=== PATIENT | female | born 1970 | race Caucasian/White ===

== ENCOUNTER → 2018-09-27 | Outpatient (CLI) | payer OTHER | LOC: M WUC 13:40 | DX: M54.9 Dorsalgia, unspecified (principal) | CPT/HCPCS: 71046 ==

== ENCOUNTER → 2018-11-08 | Outpatient (REF) | payer OTHER ==
[2018-11-08 17:51] LABS: BASO # 0.1 10^3/uL (0.0-0.2); EOS # 0.1 10^3/uL (0.0-0.50); EOS % 1.3 % (0.0-3.0); HEMATOCRIT 43.6 % (36.0-47.0); HEMOGLOBIN 14.9 g/dl (12.0-15.5); LYMPH # 2.6 10^3/uL (1.5-4.5); LYMPH % 30.8 % (24.0-44.0); MEAN CORPUSCULAR HEMOGLOBIN 29.4 pg (27.0-33.0); MEAN CORPUSCULAR HGB CONC 34.2 g/dl (32.0-36.5); MONO # 0.5 10^3/uL (0.0-0.8); MONO % 5.7 % (0.0-5.0); NEUTROPHILS # 5.1 10^3/uL (1.8-7.7); PLATELET COUNT, AUTOMATED 382 10^3/uL (150-450); RED BLOOD COUNT 5.07 10^6/uL (4.00-5.40); WHITE BLOOD COUNT 8.4 10^3/uL (4.0-10.0)
[2018-11-08 18:05] LABS: HEMOGLOBIN A1c 5.8 %
[2018-11-08 18:18] LABS: ALBUMIN 4.2 GM/DL (3.2-5.2); ALT/SGPT 25 U/L (12-78); BILIRUBIN,TOTAL 0.3 MG/DL (0.2-1.0); BLOOD UREA NITROGEN 10 MG/DL (7-18); CALCIUM LEVEL 9.2 MG/DL (8.5-10.1); CARBON DIOXIDE LEVEL 30 MEQ/L (21-32); CHLORIDE LEVEL 103 MEQ/L (98-107); CHOLESTEROL LEVEL 193 MG/DL (<200); CREATININE FOR GFR 0.68 MG/DL (0.55-1.30); GLOMERULAR FILTRATION RATE > 60.0 (>58); GLUCOSE, FASTING 86 MG/DL (70-100); HDL CHOLESTEROL 50 MG/DL (>40); LDL CHOLESTEROL 116 MG/DL (<100); NON-HDL-C 143 MG/DL; SODIUM LEVEL 139 MEQ/L (136-145); THYROID STIMULATING HORMONE 0.966 uIU/ML (0.358-3.740); TOTAL 25(OH) VITAMIN D 34.2 NG/ML (30.0-100.0); TOTAL PROTEIN 7.9 GM/DL (6.4-8.2); TRIGLYCERIDES LEVEL 134 MG/DL (<150)
== END ==
LOC: M LAB REF 16:33
PROVIDERS: ATTEND Nurse Practitioner Family
DX: Z13.9 Encounter for screening, unspecified (principal)

== ENCOUNTER 2019-08-13 21:47 | Emergency (ER) | payer OTHER ==
[~2019-08-13] VITALS: Ht 172.7 cm; Wt 61.4 kg
[2019-08-13] MEDS ORDERED: TRAZ-163 PO (21:58)
[2019-08-13] MEDS ORDERED: WELLTAB40 PO (21:58)
[2019-08-13] MEDS ORDERED: NAPROXEN 250 MG TAB PO ONE (23:00)
[2019-08-13] MEDS ORDERED: DERMABOND TOPICAL SKIN ADHESIVE TOP ONE (23:00)
[2019-08-13 23:24] VITALS: BP 122/63
--- NOTE | 2019-08-14 10:36 | REP ---
Right small finger series: Four views. History: Laceration. Trauma. Findings: Four views of the right small finger show no evidence of fracture or opaque foreign body. There is soft tissue swelling and irregularity of the distal phalanx consistent with soft tissue laceration. Impression: No fracture or opaque foreign body seen. Electronically Signed by Morris Wade MD 08/14/2019 07:59 A
== END 2019-08-13 23:24 | disposition home or self-care (01) ==
LOC: M ED 21:47
DX: S61.206A Unspecified open wound of right little finger without damage to nail, initial encounter (principal); W23.0XXA Caught, crushed, jammed, or pinched between moving objects, initial encounter; Y92.099 Unspecified place in other non-institutional residence as the place of occurrence of the external cause; Y93.9 Activity, unspecified; Y99.9 Unspecified external cause status; F32.9 Major depressive disorder, single episode, unspecified; Z79.899 Other long term (current) drug therapy

== ENCOUNTER → 2019-09-05 | Outpatient (CLI) | payer OTHER ==
[~2019-09-05] MED LIST: TRAZ-163 PO; WELLTAB40 PO
--- NOTE | 2019-09-05 09:34 | REP ---
Two-view chest: 09/05/2019. Indication: Chest pain. Comparison: 09/27/2019. Findings: The lungs are clear. There is no pleural effusion or pneumothorax. The cardiomediastinal silhouette is unremarkable. Impression: No acute cardiopulmonary process. Electronically Signed by Sonny Alvarado DO 09/05/2019 09:26 A
== END ==
LOC: M ADAMS 08:32
PROVIDERS: ATTEND Nurse Practitioner Family
DX: R07.1 Chest pain on breathing (principal)

== ENCOUNTER → 2020-04-16 | Outpatient (CLI) | payer OTHER ==
[~2020-04-16] MED LIST changes: -TRAZ-163 PO; +TRAZ-257 PO
== END ==
LOC: M LABSMTC 10:02
PROVIDERS: ATTEND Pediatrics
DX: Z03.818 Encounter for observation for suspected exposure to other biological agents ruled out (principal); Z11.59 Encounter for screening for other viral diseases

== ENCOUNTER → 2020-04-30 | Outpatient (REF) | payer OTHER ==
[2020-04-30 11:28] LABS: APPEARANCE, URINE CLEAR (CLEAR); BACTERIA, URINE AUTO NEGATIVE (NEGATIVE); BILIRUBIN, URINE AUTO NEGATIVE (NEGATIVE); BLOOD, URINE BLOOD NEGATIVE (NEGATIVE); COLOR, URINE STRAW (YELLOW); GLUCOSE, URINE (UA) AUTO NEGATIVE (NEGATIVE); KETONE, URINE AUTO NEGATIVE (NEGATIVE); LEUKOCYTE ESTERASE, URINE AUTO NEGATIVE (NEGATIVE); NITRITE, URINE AUTO NEGATIVE (NEGATIVE); PROTEIN, URINE AUTO NEGATIVE (NEGATIVE); RBC, URINE AUTO 0 /HPF (0-3); SPECIFIC GRAVITY URINE AUTO 1.004 (1.002-1.035); SQUAMOUS EPITHELIAL CELL UR AU 0 /HPF (0-6); UROBILINOGEN, URINE AUTO 0.2 mg/dL (0.0-2.0); WBC, URINE AUTO 0 /HPF (0-3)
[2020-04-30 11:40] LABS: HEMOGLOBIN A1c 5.4 %
[2020-04-30 11:47] LABS: ALT/SGPT 25 U/L (12-78); BILIRUBIN,TOTAL 0.4 MG/DL (0.2-1.0); BLOOD UREA NITROGEN 12 MG/DL (7-18); CALCIUM LEVEL 9.4 MG/DL (8.5-10.1); CARBON DIOXIDE LEVEL 34 MEQ/L (21-32); CHLORIDE LEVEL 105 MEQ/L (98-107); CHOLESTEROL LEVEL 147 MG/DL (<200); FREE T4 0.96 NG/DL (0.76-1.46); GLOMERULAR FILTRATION RATE > 60.0 (>51); GLUCOSE, FASTING 87 MG/DL (70-100); HDL CHOLESTEROL 62 MG/DL (>40); LDL CHOLESTEROL 74 MG/DL (<100); NON-HDL-C 85 MG/DL; POTASSIUM SERUM 4.9 MEQ/L (3.5-5.1); SODIUM LEVEL 141 MEQ/L (136-145); THYROID STIMULATING HORMONE 0.571 uIU/ML (0.358-3.740); TOTAL PROTEIN 7.4 GM/DL (6.4-8.2); TRIGLYCERIDES LEVEL 56 MG/DL (<150)
[2020-05-01 18:42] LABS: PTH INTACT 35.1 PG/ML (18.5-88.0); TOTAL 25(OH) VITAMIN D 44.6 NG/ML (30.0-100.0)
[2020-05-01 19:11] LABS: CA19-9 TUMOR MARKER,CARBOHYDRA 7.3 U/ML (<35.0)
== END ==
LOC: M SFHCPLAZ 10:09
PROVIDERS: ATTEND Physician Assistant Medical
DX: R10.9 Unspecified abdominal pain (principal); E55.9 Vitamin D deficiency, unspecified; Z13.220 Encounter for screening for lipoid disorders; R63.4 Abnormal weight loss

== ENCOUNTER → 2020-06-03 | Outpatient (REF) | payer OTHER ==
[2020-06-03 20:07] LABS: BASO % 0.5 % (0.0-1.0); EOS % 0.5 % (0.0-3.0); HEMATOCRIT 40.1 % (36.0-47.0); HEMOGLOBIN 13.3 g/dl (12.0-15.5); LYMPH # 0.8 10^3/uL (1.5-5.0); LYMPH % 20.4 % (24.0-44.0); MEAN CORPUSCULAR HEMOGLOBIN 30.9 pg (27.0-33.0); MEAN CORPUSCULAR HGB CONC 33.2 g/dl (32.0-36.5); MEAN CORPUSCULAR VOLUME 93.3 fl (80.0-96.0); MONO # 0.5 10^3/uL (0.0-0.8); MONO % 13.2 % (0.0-5.0); NEUTROPHILS # 2.6 10^3/uL (1.5-8.5); NEUTROPHILS % 65.1 % (36.0-66.0); PLATELET COUNT, AUTOMATED 253 10^3/uL (150-450); WHITE BLOOD COUNT 3.9 10^3/uL (4.0-10.0)
== END ==
LOC: M SFHCPLAZ 14:19
PROVIDERS: ATTEND Physician Assistant Medical
DX: R10.9 Unspecified abdominal pain (principal)

== ENCOUNTER → 2020-07-30 | Outpatient (CLI) | payer SELFPAY | LOC: M LABSMTC 12:27 | PROVIDERS: ATTEND Pediatrics | DX: Z20.828 Contact with and (suspected) exposure to other viral communicable diseases (principal) ==

== ENCOUNTER → 2020-12-10 | Outpatient (CLI) | payer OTHER, SELFPAY ==
[~2020-12-10] MED LIST changes: +BUPR1TAB56 PO; +TRAZ1TAB14 PO
== END ==
LOC: M LABSMTC 13:22
PROVIDERS: ATTEND Anesthesiology
DX: Z01.812 Encounter for preprocedural laboratory examination (principal); Z20.822 Contact with and (suspected) exposure to COVID-19

== ENCOUNTER 2020-12-15 07:28 | Day surgery (SDC) | payer OTHER ==
[~2020-12-15] VITALS: Ht 172.7 cm; Wt 60.3 kg
[~2020-12-15 07:28] MED LIST changes: +LIDOCAINE 2% 100MG/5ML SDV (FOR ANES.) As Ordered ONE; +NS 1,000 ML IV ONE; +propofoL 200 MG/20 ML VIAL As Ordered ONE
--- OUTSIDE RECORDS SUMMARY | 2020-12-15 07:33 | CCD ---
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 filledwithout mass, wall thickening or stone. No distal ureteral dilatation orstone. Uterus absent and the vaginal cuff intact. No adnexal mass. Smallbowel loops fill the deep pelvis and are fluid-filled but not abnormallydilated. The distal left colon, sigmoid and rectum show less caliber andstool content than the mid-left colon without an abrupt caliber change.There is no mass or adenopathy in the pelvis. No ventral or inguinalhernia nor inguinal adenopathy.IMPRESSION:1. There is no renal, ureteral or bladder stone. An extrarenal pelvis isnoted on the right side but normal caliber collecting system and entiretyof the ureters on both sides. No ureteral stone.2. No bladder calculus or mass.3. Small bowel loops are fluid- filled but not abnormally dilated.4. Some gwnc-rc-ccxgoajm diffuse constipation from cecum to the mid/distalcolon on the left. No colitis, diverticulitis, stricture or mass.5. No inflammatory changes in the mesentery, abdominal or pelvicadenopathy or acute bony finding.6. Solid organs in the upper abdomen were unremarkable. Gallbladdercontracted.Accredited by the [employer] in [place].Gareth Emerson, ISAIAH/Chelsi you for referring BISI SCHMITT to our office. Electronically Signed - GARTEH EMERSON MD 05/25/20 17:35 Name Value Range Interpretation Code Description Data Bertha rce(s) Supporting Document(s) ID Date Data Source [id number] 04/16/2020 10:00:00 AM EDT [facility] Name Value Range Interpretation Code Description Data Bertha rce(s) Supporting Document(s) SARS CORONAVIRUS 2 RNA [facility] This lab was ordered by [facility] and reported by [facility]. Procedure Social History Code Duration Value Status Description Data Source(s ) Smoking 09/16/2020 12:00:00 AM EST Never Smoker completed Never S moker eCW1 ([facility]) Smoking 09/16/2020 12:00:00 AM EST Never Smoker completed Never S moker eCW1 ([facility]) Smoking 09/09/2020 12:00:00 AM EDT Never Smoker completed Never S moker eCW1 ([facility]) Smoking 09/09/2020 12:00:00 AM EDT Never Smoker completed Never S moker eCW1 ([facility]) Smoking 09/09/2020 12:00:00 AM EDT Never Smoker completed Never S moker eCW1 ([facility]) Smoking 06/05/2020 12:00:00 AM EDT Patient has never smoked co mpleted Patient has never smoked MEDENT ([facility], [facility]) Smoking 06/03/2020 12:00:00 AM EDT Never Smoker completed Never S moker eCW1 ([facility]) Smoking 04/30/2020 12:00:00 AM EDT Never Smoker completed Never S moker eCW1 ([facility]) Vital Signs ID Date Data Source UNK Name Value Range Interpretation Code Description Data Source(s) Body surface area Derived from formula 1.72 m2 1.72 m2 MEDENT ([facility]) Body weight 60.329 kg 60.329 kg MEDENT ([facility]) [place] body weight 140 [lb_av] 140 [lb_av] MEDEN T ([facility]) Body mass index (BMI) [Ratio] 20.2 kg/m2 20.2 k g/m2 [facility] ([facility]) Body weight 133.00 [lb_av] 133.00 [lb_av] MEDEN T ([facility]) Body height 68 [in_i] 68 [in_i] MEDENT ([facility]) 5'8" Diastolic blood pressure 80 mm[Hg] 80 mm[Hg] MEDENT ([facility]) Systolic blood pressure 140 mm[Hg] 140 mm[Hg] M EDENT ([facility]) Body weight 132.8 [lb_av] 132.8 [lb_av] eCW1 ([facility]) Diastolic blood pressure 62 mm[Hg] 62 mm[Hg] eCW1 ([facility]) Systolic blood pressure 118 mm[Hg] 118 mm[Hg] e CW1 ([facility]) Body temperature 97.9 [degF] 97.9 [degF] eCW1 ( [facility]) Respiratory rate 20 /min 20 /min eCW1 ([facility]) Heart rate 83 /min 83 /min eCW1 ([facility]) Body mass index (BMI) [Ratio] 20.49 kg/m2 20.49 kg/m2 eCW1 ([facility]) Body height 67.5 [in_i] 67.5 [in_i] eCW1 ([facility]) Body mass index (BMI) [Ratio] 19.0 kg/m2 19.0 k g/m2 MEDENT ([facility]) Body height 68 [in_i] 68 [in_i] MEDENT ([facility]) 5'8" Body weight 125.00 [lb_av] 125.00 [lb_av] MEDEN T ([facility], [facility]) Body temperature 98.5 [degF] 98.5 [degF] MEDENT ([facility], [facility]) Oxygen saturation in Arterial blood by Pulse oximetry 97 % 97 % MEDENT ([facility], [facility]) Respiratory rate 17 /min 17 /min MEDENT ( [facility], [facility]) Heart rate 101 /min 101 /min MEDENT ([facility], [facility]) Diastolic blood pressure 69 mm[Hg] 69 mm[Hg] MEDENT ([facility], [facility]) Systolic blood pressure 112 mm[Hg] 112 mm[Hg] M EDENT ([facility], [facility]) Diastolic blood pressure 78 mm[Hg] 78 mm[Hg] eCW1 ([facility]) Systolic blood pressure 122 mm[Hg] 122 mm[Hg] e CW1 ([facility]) Body temperature 99.5 [degF] 99.5 [degF] eCW1 ( [facility]) Respiratory rate 17 /min 17 /min eCW1 ([facility]) Heart rate 92 /min 92 /min eCW1 ([facility]) Body mass index (BMI) [Ratio] 20.37 kg/m2 20.37 kg/m2 W1 ([facility]) Body height 67.5 [in_i] 67.5 [in_i] eCW1 ([facility]) Body weight 132.0 [lb_av] 132.0 [lb_av] eCW1 ([facility]) Diastolic blood pressure 67 mm[Hg] 67 mm[Hg] eCW1 ([facility]) Systolic blood pressure 118 mm[Hg] 118 mm[Hg] e CW1 ([facility]) Body mass index (BMI) [Ratio] 20.06 kg/m2 20.06 kg/m2 eCW1 ([facility]) Body height 67.5 [in_i] 67.5 [in_i] eCW1 ([facility]) Body weight 130 [lb_av] 130 [lb_av] eCW1 ([facility]) Diastolic blood pressure 60 mm[Hg] 60 mm[Hg] eCW1 ([facility]) Systolic blood pressure 106 mm[Hg] 106 mm[Hg] e CW1 ([facility]) Body temperature 98.1 [degF] 98.1 [degF] eCW1 ( [facility]) Respiratory rate 17 /min 17 /min eCW1 ([facility]) Heart rate 128.4 /min 128.4 /min eCW1 ([facility]) Body mass index (BMI) [Ratio] 19.81 kg/m2 19.81 kg/m2 eCW1 ([facility]) Body height 67.5 [in_i] 67.5 [in_i] eCW1 ([facility]) Body weight 128.4 [lb_av] 128.4 [lb_av] eCW1 ([facility]) Diastolic blood pressure 84 mm[Hg] 84 mm[Hg] eCW1 ([facility]) Systolic blood pressure 124 mm[Hg] 124 mm[Hg] e CW1 ([facility]) Body mass index (BMI) [Ratio] 20.06 kg/m2 20.06 kg/m2 eCW1 ([facility]) Body height 67.5 [in_us] 67.5 [in_us] eCW1 ([facility]) Body weight Measured 130 [lb_av] 130 [lb_av] eC W1 ([facility]) Systolic blood pressure 102 mm[Hg] 102 mm[Hg] M EDENT ([facility]) Body mass index (BMI) [Ratio] 22.3 kg/m2 22.3 k g/m2 MEDENT ([facility], [facility]) Body height 68 [in_i] 68 [in_i] MEDENT ([facility], [facility]) 5'8" Body weight 147.00 [lb_av] 147.00 [lb_av] MEDEN T ([facility], [facility]) Body temperature 98.6 [degF] 98.6 [degF] MEDENT ([facility], [facility]) Oxygen saturation in Arterial blood by Pulse oximetry 99 % 99 % MEDENT ([facility], [facility]) Respiratory rate 16 /min 16 /min MEDENT ( [facility], [facility]) Heart rate 64 /min 64 /min MEDENT ([facility], [facility]) Diastolic blood pressure 66 mm[Hg] 66 mm[Hg] [facility], [facility]) Body temperature 96.8 [degF] 96.8 [degF] [facility] ([facility], )
--- OUTSIDE RECORDS SUMMARY | 2020-12-15 07:33 | CCD ---
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 Role Phone SirenaJuan jang Unavailable PROBLEMS Type Condition ICD9-CM Code LUF24-AL Code Onset Dates Condition S tatus SNOMED Code Notes Problem Melanocytic nevi of left lower limb, including hip D22.72 Active [id number] Problem Melanocytic nevi of right lower limb, including hip D22.71 Active 322342042 Problem Melanocytic nevi of left upper limb, including shoulder D22.62 Active 878281405299073 Problem Unintentional weight loss of 10% body weight within 6 dinora hs R63.4 Active 035260081 Problem Other chronic pain G89.29 Active 70958405 Problem Vitamin D insufficiency E55.9 Active 13920693 Problem Melanocytic nevi of right upper limb, including shoulder D22.61 Active 470971828 Problem Melanocytic nevi of trunk D22.5 Active 013496 002 Problem Melanocytic nevi of scalp and neck D22.4 Activ e 629530065 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 675952319 ALLERGIES No Known Allergies ENCOUNTERS from 1969 to 2020-10-12 Encounter Location Date Provider Diagnosis [facility] Dermatology [address] [place] [address] May, Juan Dukes Melanocytic nevi of trunk D2 2.5 ; Screening, malignant neoplasm, skin Z12.83 ; Melanocytic nevi of right lower limb, including hip D22.71 ; Melanocytic nevi of right upper limb, including shoulder D22.61 ; Melanocytic nevi of left lower limb, including hip D22.72 ; Melanocytic nevi of left upper limb, including shoulder D22.62 ; Melanocytic nevi of scalp and neck D22.4 ; 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 No LMP: Hysterectomy Have you ever had an STD? No Drug and Alcohol Question Answer Notes Total Score: 0 Interpretation: No problems reported Alcohol Screening: Question Answer Notes Did you have a drink containing alcohol in the past year? Ye s Points 2 Interpretation Negative How often did you have six or more drinks on one occas ion in the past year? Never (0 points) How many drinks did you have on a typica l day when you were drinking in the past year? 1 or 2 (0 points) How often did you have a drink containing alcohol in t he past year? Two to four times a month (2 points) Tobacco Use: Question Answer Notes Are you a: never smoker never smoker REASON FOR REFERRAL No Information VITAL SIGNS Weight 130 lbs May, Height 67.5 in May, BMI 20.06 kg/m2 May, Blood pressure systolic 118 mm Hg May, Blood pressure diastolic 67 mm Hg May, MEDICATIONS Medication SIG (Take, Route, Frequency, Duration) Notes Start Da te End Date Status TraZODone HCl 150 MG 1 tablet at bedtime Orally Once a day Active Vitamin D (Cholecalciferol) 10 MCG (400 UNIT) 1 tablet Orally Once a day for 30 day(s) Active Wellbutrin SR 200 MG 1 tab Orally twice daily Active PROCEDURES No Information RESULTS No Results REASON FOR VISIT est care, fbse MEDICAL (GENERAL) HISTORY Type Description Date Medical History depression Medical History Early surgical menopause Surgical History tubal ligation Surgical History Laparoscopic Assisted vaginal hysterecto Liborio otero 09/2009 Surgical History laser eye surgery Surgical History Left knee meniscal repair Hospitalization History Hysterectomy Hospitalization History childbirth x's 1 Goals Section No Information Health Concerns No Information MEDICAL EQUIPMENT No Information MENTAL STATUS No Information FUNCTIONAL STATUS No Information ASSESSMENTS Encounter Date Diagnosis Assessment Notes Treatment Notes Treatm ent Clinical Notes May, Melanocytic nevi of trunk (ICD-10 - D22.5) Benign, reassurance, ABCDE, photoprotection, Q 1 Y MD derm skin check, Q 1 M self skin check May, Screening, malignant neoplasm, skin (ICD-10 - Z1 2.83) Patient counseled on signs and symptoms of skin cancer including ABCDE's of Melanoma. Patient counseled to wear sunscreen or use sun protective clothing when outdoors. Avoid peak hours of sun between 10-2. Patient instructed to call with any new or changing lesions. May, Melanocytic nevi of right lo wer limb, including hip (ICD-10 - D22.71) Benign, reassurance, ABCDE, photoprotection, Q 1 Y MD derm skin check, Q 1 M self skin check May, Melanocytic nevi of right up per limb, including shoulder (ICD-10 - D22.61) Benign, reassurance, ABCDE, photoprotection, Q 1 Y MD derm skin check, Q 1 M self skin check May, Melanocytic nevi of left low er limb, including hip (ICD-10 - D22.72) Benign, reassurance, ABCDE, photoprotection, Q 1 Y MD derm skin check, Q 1 M self skin check May, Melanocytic nevi of left upp er limb, including shoulder (ICD-10 - D22.62) Benign, reassurance, ABCDE, photoprotection, Q 1 Y MD derm skin check, Q 1 M self skin check May, Melanocytic nevi of scalp and neck (ICD-10 - D22 .4) Benign, reassurance, ABCDE, photoprotection, Q 1 Y MD derm skin check, Q 1 M self skin check May, Notalgia paresthetica (ICD-10 - R20.2) Sarna in refrigerater ad ramiro to itchy areas May, SK (seborrheic keratosis) (ICD-10 - L82.1) Benign, reassurance PLAN OF TREATMENT Treatment Notes Assessment Notes Clinical Notes Melanocytic nevi of trunk Benign, reassurance, ABCDE, photoprotection, Q 1 Y MD derm skin check, Q 1 M self skin check Screening, malignant neoplasm, skin Patient counseled on signs and symptoms of skin cancer including ABCDE's of Melanoma. Patient counseled to wear sunscreen or use sun protective clothing when outdoors. Avoid peak hours of sun between 10 -2. Patient instructed to call with any new or changing lesions. Melanocytic nevi of right lower limb, including hip Be nign, reassurance, ABCDE, photoprotection, Q 1 Y MD derm skin check, Q 1 M self skin check Melanocytic nevi of right upper limb, including should er Benign, reassurance, ABCDE, photoprotection, Q 1 Y MD derm skin check, Q 1 M self skin check Melanocytic nevi of left lower limb, including hip Toño ign, reassurance, ABCDE, photoprotection, Q 1 Y MD derm skin check, Q 1 M self skin check Melanocytic nevi of left upper limb, including shoulde r Benign, reassurance, ABCDE, photoprotection, Q 1 Y MD derm skin check, Q 1 M self skin check Melanocytic nevi of scalp and neck Benign, reassurance , ABCDE, photoprotection, Q 1 Y MD derm skin check, Q 1 M self skin check Notalgia paresthetica Sarna in refrigera ter ad ramiro to itchy areas SK (seborrheic keratosis) Benign, reassu mervat Next Appt Details 1 Year Reason:FBSE Provider Name:Aylin Duenas, 03-11 10:45:00 AM, [address] [place], [address], Provider Name:Seda Vargas, 10:00:00 AM, [address] [facility] [facility], [place], [address], Follow Up:1 YearFBSE Insurance Providers Payer Name Payer Address Payer Phone Insured Name Patient Relati onship to Insured Coverage Start Date Coverage End Date [facility] [employer] [facility] [address] [facility] [phone] BISI ARTEAGA self
--- OUTSIDE RECORDS SUMMARY | 2020-12-15 07:33 | CCD | Continuity of Care Document ---
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 Name Role Phone SumibrianAylin AUTM Problems Description No Information Available Social History Type Date Description Comments Sex Unknown ETOH Use Rarely consumes alcohol Tobacco Use Start: Unknown Patient has never smoked Allergies, Adverse Reactions, Alerts Description No Known Drug Allergies Medications Active Medications SIG Qnty Indications Ordering Provide r Date Magnesium Citrate 1.745GM/30ML Kellie ution one 10 oz bottle green or clear only, use for additional prep at 2-3 days before procedure 296ml K59.00 Oni Winkler MD 10/19/2020 Miralax 17GM/Scoop Powder use as directed see dr winkler colon preparation instructions 510gm K59.00 Ramirez Winkler MD 10/19/2020 Wellbutrin XL 300mg Tablets ER 24H R take one tablet by mouth every morning Unknown Trazodone HCL 100mg Tablets Unknown Fibercon 625mg Tablets 2 by mouth twice a day Unknown Vitamin D 1000Unit Tablets 1 by mouth every day Unknown Immunizations Description No Information Available Vital Signs Date Vital Result Comment 10/19/2020 10:15am BP Systolic 140 mmHg BP Diastolic 80 mmHg Height 68 inches 5'8" Weight 133.00 lb BMI (Body Mass Index) 20.2 kg/m2 Juliaetta Body Weight 140 lb Weight 60.329 kg BSA (Body Surface Area) 1.72 m2 11/21/2019 10:36am Body Temperature 96.8 F Results Description No Information Available Procedures Description No Information Available Medical Devices Description No Information Available Encounters Type Date Location Provider Dx Diagnosis Office Visit 10/19/2020 10:15a [facility] Oni contreras MD K59.00 Constipation, unspecified R19.4 Change in bowel habit R63.4 Abnormal weight loss Assessments Date Code Description Provider 10/19/2020 K59.00 Constipation, unspecified Oni Winkler MD 10/19/2020 R19.4 Change in bowel habit Oni contreras MD 10/19/2020 R63.4 Abnormal weight loss Oni maldonado MD Plan of Treatment 10/19/2020 - Oni Winkler MD* K59.00 Constipation, unspecified * R19.4 Change in bowel habit * R63.4 Abnormal weight loss * * New Medication:* Magnesium Citrate 1.745 GM/30ML * Miralax 17 GM/Scoop * New Orders:* Colonoscopy, Ordered: 10/19/20 * Recommendations:* stop Fiber, start Miralax 17 gm daily. this will not work overnight...will take 4-5 days before results, but then with continued use, will typically procduce 1 BM/day in mild to moderate constipation. May need to adjust later to twice a day, buit would start with that. Colonoscopy rec for change in BH and for weight loss. Functional Status Description No Information Available Mental Status Description No Information Available Referrals Refer to Reason for Referral Status Appt Date Stan Blanton M.D. taylor, needs screening col onosocpy constipation noted on CT 04/2020 Scheduled 10/07/[address] [place] [address], [address] [place] [address] [phone]
--- OUTSIDE RECORDS SUMMARY | 2020-12-15 07:33 | CCD ---
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 671102631 Problem Vitamin D insufficiency E55.9 Active 40787585 Problem Breast cancer screening by mammogram Z12.31 Act kera 332819787 Problem Cervical cancer screening Z12.4 Active 336460 001 Problem Lipid screening Z13.220 Active 717442827 Problem Colon cancer screening Z12.11 Active 520307725 Problem Breast cancer screening Z12.39 Active 99532231 1 Problem Unintentional weight loss of 10% body weight within 6 dinora hs R63.4 Active 540688097 ALLERGIES No Known Allergies ENCOUNTERS from 1970 to 2020-10-06 Encounter Location Date Provider Diagnosis [address] [address] Sep, Aylin Sumibrian Left flank pain R10.9 ; Unintentional we ight loss of 10% body weight within 6 months R63.4 ; Vitamin D insufficiency E55.9 ; Breast cancer screening Z12.39 ; Colon cancer screening Z12.11 ; Lipid screening Z13.220 and Cervical cancer screening Z12.4 IMMUNIZATIONS No Information SOCIAL HISTORY Tobacco Use: Social History Observation Description Date Details (start date - stop date) Never Smoker Sex Assigned At : Social History Observation Description Sex Assigned At Unknown Audit Question Answer Notes Total Score: 2 Interpretation: Alcohol Education Language: Question Answer Notes Languages spoken: Bulgarian Rastafarian: Question Answer Notes Rastafarian 32 None Sexual Hx: Question Answer Notes [...] FOR REFERRAL No Information VITAL SIGNS Weight 132.8 lbs Sep, Height 67.5 in Sep, BMI 20.49 kg/m2 Sep, Heart Rate 83 /min Sep, Respiratory Rate 20 /min Sep, Temperature 97.9 degrees Fahrenheit Sep, Oximetry 97% Sep, Blood pressure systolic 118 mm Hg Sep, Blood pressure diastolic 62 mm Hg Sep, MEDICATIONS Medication SIG (Take, Route, Frequency, Duration) Notes Start Da te End Date Status TraZODone HCl 150 MG 1 tablet at bedtime Orally Once a day Active Vitamin D (Cholecalciferol) 10 MCG (400 UNIT) 1 tablet Orally Once a day for 30 day(s) Active Wellbutrin SR 200 MG 1 tab Orally twice daily Active PROCEDURES No Information RESULTS No Results REASON FOR VISIT Colon Cancer screening MEDICAL (GENERAL) HISTORY Type Description Date Medical [...] Notes Treatment Notes Treatm ent Clinical Notes Sep, Left flank pain (ICD-10 - R10.9) possibly 2 constipation 05/2020 CT of A&P @ No. Rad. c extrarenal pelvis on Rt. no stone no stone; mild- moderate diffuse constip. in cecum to mid colon 04/2020 CA 19-9 7.3 nl 04/2020 na 141, k4.9, BUN/CR 12/0.70, GLUC 87, CALC9.4, AST 12, ALT 25 04 Sep, 2020 Unintentional weight loss of 10% body weight within 6 months (ICD- 10 - R63.4) She has remained stable since 06/01 132lbs., Consulted to GI for screening colonoscopy will change to Dr. Bowman if can't get in Sep, Vitamin D insufficiency (ICD-10 - E55.9) 04/2020 VIT. d 44.6, pTHI 44.6, CALC9.4 Sep, Breast cancer screening (ICD-10 - Z12.39) Does monthly SBE's 2019 Mammo. @[facility] 2017 Mammo. cat. 1 neg. @ [facility] 02/2014 Mammo. Cat. 1 Neg. Sep, Colon cancer screening (ICD-10 - Z12.11) no family h/o colon cancer or polyps 10/07 f/u c Dr. Gibson Sep, Lipid screening (ICD-10 - Z13.220) 04/2020 ldl 74/hdl62/TG 56; TSH 0.571, FT4 0.96 Sep, Cervical cancer screening (ICD-10 - Z12.4) 2010 S/p hysterectomy Sep, Other 09/2019 neg. CX RAY for CP PLAN OF TREATMENT Treatment Notes Assessment Notes Clinical Notes Left flank pain possibly 2 constipat ion05/2020 CT of A&P @ No. Rad. c extrarenal pelvis on Rt. no stone no stone; mild-moderate diffuse constip. in cecum to mid colon04/2020 CA 19-9 7.3 nl04/2020 na 141, k4.9, BUN/CR 12/0.70, GLUC 87, CALC9.4, AST 12, ALT 25 Unintentional weight loss of 10% body weight within 6 months She has remained stable since 06/01 132lbs.,Consulted to GI for screening colonoscopy will change to Dr. Bowman if can't get in Vitamin D insufficiency 04/2020 VIT. d 44 .6, pTHI 44.6, CALC9.4 Breast cancer screening Does monthly SBE Mammo. @[id number] Mammo. cat. 1 neg. @ [facility]/2014 Mammo. Cat. 1 Neg. Colon cancer screening no family h/o col on cancer or polyps 10/07 f/u c Dr. Gibson Lipid screening 04/2020 ldl 74/hdl62/ TG 56; TSH 0.571, FT4 0.96 Cervical cancer screening 2010 S/p hyste rectomy Next Appt Details 5-6M f/u c SS Reason: Provider Name:Aylin Duenas, 03-11 10:45:00 AM, [address] [place], [address], Provider Name:Seda Vargas, 10:00:00 AM, [address] [place], [address] [place] [address], [place], [address], Insurance Providers Payer Name Payer Address Payer Phone Insured Name Patient Relati onship to Insured Coverage Start Date Coverage End Date [facility] [employer] [facility] [address] [facility] [id number] BISI ARTEAGA
--- NOTE | 2020-12-15 09:02 | ROOR ---
Patient Name: Nakita King Procedure Date: 12/15/2020 8:35 AM Date of : 1970 Age: 50 Room: [facility] Gender: Female Note Status: Finalized Procedure: Colonoscopy Indications: Change in bowel habits Providers: Oni GIBSON MD Referring MD: Aylin AZUL Requesting Provider: Medicines: Monitored Anesthesia Care Complications: No immediate complications. Procedure: Pre-Anesthesia Assessment: - The heart rate, respiratory rate, oxygen saturations, blood pressure, adequacy of pulmonary ventilation, and response to care were monitored throughout the procedure. The Colonoscope was introduced through the anus and advanced to 5 cm into the ileum. The colonoscopy was performed without difficulty. The patient tolerated the procedure well. The quality of the bowel preparation was good. Findings: The perianal and digital rectal examinations were normal. The colon (entire examined portion) was moderately redundant. A diminutive polyp was found in the splenic flexure. The polyp was sessile. The polyp was removed with a cold snare. Resection and retrieval were complete. A few small-mouthed diverticula were found in the sigmoid colon. Small Internal Hemorrhoids. The exam was otherwise without abnormality on direct and retroflexion views. Impression: - Somewhat elongated and redundant colon. - One diminutive polyp at the splenic flexure, removed with a cold snare. Resected and retrieved. - Minimal diverticulosis in the sigmoid colon. - Small Internal Hemorrhoids. - The colon and terminal ileum examinations are otherwise normal on direct and retroflexion views. Recommendation: - Miralax 1 capful (17 grams) in 8 ounces of water daily. (or Miralax 1 capful (17 grams) in 8 ounces of water twice a day). - Repeat colonoscopy in 5 years for surveillance. Procedure Code(s): --- Professional --- 86398, Colonoscopy, flexible; with removal of tumor(s), polyp(s), or other lesion(s) by snare technique Diagnosis Code(s): --- Professional --- K57.30, Diverticulosis of large intestine without perforation or abscess without bleeding R19.4, Change in bowel habit K63.5, Polyp of colon Q43.8, Other specified congenital malformations of intestine CPT copyright 2019 [employer]. All rights reserved. The codes documented in this report are preliminary and upon dry can tender review may be revised to meet current compliance requirements. Oni Gibson MD Oni GIBSON MD 12/15/2020 9:02:29 AM Electronically signed by Oni GIBSON MD Number of Addenda: 0 Note Initiated On: 12/15/2020 8:35 AM Estimated Blood Loss: Estimated blood loss: none.
[2020-12-15 09:29] VITALS: BP 111/67
== END 2020-12-15 09:32 | disposition home or self-care (01) ==
LOC: M OPP 07:28
PROVIDERS: ATTEND Internal Medicine Gastroenterology
DX: R19.4 Change in bowel habit (principal); R63.4 Abnormal weight loss; K63.5 Polyp of colon; K64.8 Other hemorrhoids; Q43.8 Other specified congenital malformations of intestine; F32.9 Major depressive disorder, single episode, unspecified; Z79.899 Other long term (current) drug therapy; Z80.3 Family history of malignant neoplasm of breast

== ENCOUNTER → 2021-06-22 | Outpatient (CLI) | payer OTHER ==
[~2021-06-22] MED LIST changes: -LIDOCAINE 2% 100MG/5ML SDV (FOR ANES.) As Ordered ONE; -NS 1,000 ML IV ONE; -propofoL 200 MG/20 ML VIAL As Ordered ONE
--- NOTE | 2021-06-22 12:35 | REP ---
INDICATION: CHEST PAIN, COUGH. COMPARISON: 09/05/2019 TECHNIQUE: PA and lateral FINDINGS: The superior mediastinal structures are midline. The cardiac silhouette is unremarkable in size, shape, and position. The diaphragmatic surfaces of the lungs are regular, and the costophrenic angles are clear. The pulmonary andersen are clear. The imaged osseous structures are intact. IMPRESSION: There is no acute cardiopulmonary disease. <Electronically signed by Rodolfo Jaeger > 06/22/21 0014
== END ==
LOC: M WUC 12:15
PROVIDERS: ATTEND Physician Assistant
DX: R05 Cough (principal); R07.9 Chest pain, unspecified

== ENCOUNTER → 2021-06-24 | Outpatient (CLI) | payer OTHER ==
[2021-06-24 13:32] LABS: CK-MB VALUE MASS < 1.0 NG/ML (<3.6); CPK CREATINE PHOSPHOKINASE 58 U/L (26-192); MB/CK RELATIVE INDEX 1.72 (< OR =4); TROPONIN I < 0.02 NG/ML (< 0.10)
[2021-06-24 13:40] LABS: BASO # 0.1 10^3/uL (0.0-0.2); BASO % 0.9 % (0.0-1.0); EOS # 0.1 10^3/uL (0.0-0.5); EOS % 1.3 % (0.0-3.0); HEMATOCRIT 40.8 % (36.0-47.0); HEMOGLOBIN 13.4 g/dl (12.0-15.5); LYMPH # 1.5 10^3/uL (1.5-5.0); LYMPH % 27.8 % (24.0-44.0); MEAN CORPUSCULAR HEMOGLOBIN 30.3 pg (27.0-33.0); MEAN CORPUSCULAR HGB CONC 32.8 g/dl (32.0-36.5); MEAN CORPUSCULAR VOLUME 92.3 fl (80.0-96.0); MONO # 0.4 10^3/uL (0.0-0.8); MONO % 7.9 % (2.0-8.0); NEUTROPHILS # 3.3 10^3/uL (1.5-8.5); NEUTROPHILS % 61.9 % (36.0-66.0); PLATELET COUNT, AUTOMATED 298 10^3/uL (150-450); RED BLOOD COUNT 4.42 10^6/uL (4.00-5.40); WHITE BLOOD COUNT 5.3 10^3/uL (4.0-10.0)
[2021-06-24 14:23] LABS: ERYTHROCYTE SEDIMENTATION RATE 7 mm/hr (0-30)
== END ==
LOC: M PLALAB 10:19
PROVIDERS: ATTEND Physician Assistant Medical
DX: R05 Cough (principal); R07.89 Other chest pain

== ENCOUNTER → 2021-07-29 | Outpatient (CLI) | payer OTHER ==
--- NOTE | 2021-07-29 11:45 | REP ---
INDICATION: COUGH, CHEST PAIN COMPARISON: None. TECHNIQUE: Standard helical technique without intravenous contrast administration FINDINGS: There is no mediastinal or hilar adenopathy. There are no pleural or pericardial effusions. The imaged upper abdomen is within normal limits. The imaged osseous structures are within normal limits. Evaluation of the lung andersen shows mild biapical pleuroparenchymal scarring. There are bilateral lower lobe curvilinear densities. There is mild cylindrical bronchiectasis. In the left lower lobe there is a 5 mm size nodule. IMPRESSION: 1. 5 mm sized left lower lobe nodule. According to the revised Fleischner society criteria this represents lung rads category 2 lesion for which a 1 year follow-up is recommended. 2. Mild chronic lung field changes as described above. A portion of the curvilinear basilar densities noted were seen on the lung base images obtained during abdominal CT of 05/25/2020 and those imaged portions appear stable. <Electronically signed by Rodolfo Jaeger > 07/29/21 [id number]
== END ==
LOC: M RAD 11:01
PROVIDERS: ATTEND Physician Assistant Medical
DX: R05 Cough (principal); R07.89 Other chest pain; R91.1 Solitary pulmonary nodule; J47.9 Bronchiectasis, uncomplicated

== ENCOUNTER → 2021-09-28 | Outpatient (CLI) | payer OTHER ==
[~2021-09-28] MED LIST changes: +METHACHOLINE KIT (J7674) INH ONE
--- NOTE | 2021-09-28 14:29 | PFTRPT ---
Site: [facility], [address] [place], [address] ID: [id number] Name: BISI ARTEAGA Visit Date: 09/28/2021 Second ID: [id number] Referring Doctor: PETAR Gomez, Madhuri Scott Reviewing Doctor: Yayo Wu MD Sign Builder Supervisor: Tristan SALINAS RRT Age: 51 : 1970 Sex: Female Race: Height: 68.00 Inches Weight: 130.00 Lbs BSA: 1.70 Order IDs: [id number] Requested Test(s): <RESP-PFT.METH CHAL> Diagnosis: R06.00 of albuterol for post bronchodilator. Review Status: Not Reviewed Pre-Bronch Post-Bronch Pred Actual %Pred Actual %Chng SPIROMETRY FVC (L) 3.99 4.22 105 4.21 FEV1 (L) 3.13 3.23 103 3.11 -3 FEV1/FVC (%) 80 76 95 74 -3 FEF 25% (L/sec) 5.57 6.04 108 6.38 5 FEF 50% (L/sec) 3.84 3.87 100 2.98 -22 FEF 75% (L/sec) 1.38 1.06 76 0.94 -11 FEF 25-75% (L/sec) 2.89 2.69 93 2.32 -13 FEF Max (L/sec) 7.27 6.69 92 7.03 5 FIVC (L) 3.60 3.13 -13 FIF 50% (L/sec) 3.54 3.93 110 3.65 -7 FIF Max (L/sec) 4.00 4.57 14 Expiratory Time (sec) 6.37 6.81 6 Back Extrap Vol (L) 0.09 0.09 -2 Time To FEFmax (sec) 0.084 0.069 -18
== END ==
LOC: M CARPUL 13:25
PROVIDERS: ATTEND Physician Assistant
DX: R06.00 Dyspnea, unspecified (principal)
CPT/HCPCS: 94070; 95070; J7674

== ENCOUNTER 2022-04-01 15:05 | Emergency (ER) | payer OTHER ==
[~2022-04-01] VITALS: Ht 172.7 cm; Wt 61.4 kg
[~2022-04-01 15:05] MED LIST changes: -METHACHOLINE KIT (J7674) INH ONE
[2022-04-01 16:18] LABS: BASO % 0.8 % (0.0-1.0); EOS % 0.6 % (0.0-3.0); HEMATOCRIT 37.3 % (36.0-47.0); HEMOGLOBIN 12.8 g/dl (12.0-15.5); LYMPH # 1.5 10^3/uL (1.5-5.0); LYMPH % 30.4 % (24.0-44.0); MEAN CORPUSCULAR HEMOGLOBIN 31.2 pg (27.0-33.0); MEAN CORPUSCULAR HGB CONC 34.3 g/dl (32.0-36.5); MONO # 0.4 10^3/uL (0.0-0.8); MONO % 7.5 % (2.0-8.0); NEUTROPHILS # 3.1 10^3/uL (1.5-8.5); NEUTROPHILS % 60.5 % (36.0-66.0); PLATELET COUNT, AUTOMATED 302 10^3/uL (150-450); WHITE BLOOD COUNT 5.1 10^3/uL (4.0-10.0)
[2022-04-01 16:49] LABS: ALBUMIN 3.9 GM/DL (3.2-5.2); ALT/SGPT 25 U/L (12-78); BILIRUBIN,DIRECT 0.1 MG/DL (0.0-0.2); BILIRUBIN,TOTAL 0.5 MG/DL (0.2-1.0); BLOOD UREA NITROGEN 11 MG/DL (7-18); CALCIUM LEVEL 9.1 MG/DL (8.5-10.1); CARBON DIOXIDE LEVEL 30 MEQ/L (21-32); CHLORIDE LEVEL 106 MEQ/L (98-107); CK-MB VALUE MASS 1.2 NG/ML (<3.6); CPK CREATINE PHOSPHOKINASE 72 U/L (26-192); CREATININE FOR GFR 0.78 MG/DL (0.55-1.30); GLOMERULAR FILTRATION RATE > 60.0 (>51); GLUCOSE, FASTING 88 MG/DL (70-100); LIPASE 152 U/L (73-393); MB/CK RELATIVE INDEX 1.67 (< OR =4); POTASSIUM SERUM 3.7 MEQ/L (3.5-5.1); SODIUM LEVEL 141 MEQ/L (136-145); TOTAL PROTEIN 6.7 GM/DL (6.4-8.2)
[2022-04-01 17:15] VITALS: BP 117/67
== END 2022-04-01 18:00 | disposition home or self-care (01) ==
LOC: M ED 15:05
DX: R07.9 Chest pain, unspecified (principal); J45.909 Unspecified asthma, uncomplicated; F32.9 Major depressive disorder, single episode, unspecified; F41.9 Anxiety disorder, unspecified; Z79.899 Other long term (current) drug therapy

== ENCOUNTER → 2022-05-02 | Outpatient (REF) | payer OTHER | LOC: M SFHCPLAZ 12:54 | PROVIDERS: ATTEND Physician Assistant Medical | DX: K21.9 Gastro-esophageal reflux disease without esophagitis (principal) ==

== ENCOUNTER → 2022-05-04 | Outpatient (CLI) | payer OTHER ==
[2022-05-04 13:21] LABS: BASO # 0.1 10^3/uL (0.0-0.2); EOS % 0.8 % (0.0-3.0); HEMATOCRIT 44.7 % (36.0-47.0); HEMOGLOBIN 14.6 g/dl (12.0-15.5); LYMPH # 1.7 10^3/uL (1.5-5.0); LYMPH % 34.1 % (24.0-44.0); MEAN CORPUSCULAR HEMOGLOBIN 30.1 pg (27.0-33.0); MEAN CORPUSCULAR HGB CONC 32.7 g/dl (32.0-36.5); MEAN CORPUSCULAR VOLUME 92.2 fl (80.0-96.0); MONO # 0.4 10^3/uL (0.0-0.8); MONO % 8.2 % (2.0-8.0); NEUTROPHILS # 2.9 10^3/uL (1.5-8.5); NEUTROPHILS % 55.7 % (36.0-66.0); PLATELET COUNT, AUTOMATED 348 10^3/uL (150-450); RED BLOOD COUNT 4.85 10^6/uL (4.00-5.40); WHITE BLOOD COUNT 5.1 10^3/uL (4.0-10.0)
[2022-05-04 13:51] LABS: CHOLESTEROL RISK RATIO 2.52 (<5)
== END ==
LOC: M PLALAB 09:44
PROVIDERS: ATTEND Physician Assistant Medical
DX: Z13.220 Encounter for screening for lipoid disorders (principal); K21.9 Gastro-esophageal reflux disease without esophagitis

== ENCOUNTER → 2022-06-05 | Outpatient (CLI) | payer OTHER ==
[~2022-06-05] MED LIST changes: +BUSP10TA PO; +FLUT1BLS6 INH; +VITAD400CA PO
== END ==
LOC: M LABSMTC 10:37
PROVIDERS: ATTEND Anesthesiology
DX: Z01.812 Encounter for preprocedural laboratory examination (principal); Z20.822 Contact with and (suspected) exposure to COVID-19

== ENCOUNTER 2022-06-08 07:25 | Day surgery (SDC) | payer OTHER ==
[~2022-06-08] VITALS: Ht 172.7 cm; Wt 62.1 kg
[~2022-06-08 07:25] MED LIST changes: +LIDOCAINE 2% 100MG/5ML SDV (FOR ANES.) As Ordered ONE; +NS 1,000 ML IV ONE; +propofoL 200 MG/20 ML VIAL As Ordered ONE
[2022-06-08] MEDS ORDERED: fentaNYL 100 MCG/2 ML INJECTION As Ordered ONE (08:22)
[2022-06-08 09:01] VITALS: BP 141/71
== END 2022-06-08 09:00 | disposition home or self-care (01) ==
LOC: M OPP 07:25
PROVIDERS: ATTEND Surgery
DX: K29.60 Other gastritis without bleeding (principal); K44.9 Diaphragmatic hernia without obstruction or gangrene; K21.00 Gastro-esophageal reflux disease with esophagitis, without bleeding; F41.9 Anxiety disorder, unspecified; F32.9 Major depressive disorder, single episode, unspecified; J45.909 Unspecified asthma, uncomplicated; Z79.51 Long term (current) use of inhaled steroids; Z79.899 Other long term (current) drug therapy
CPT/HCPCS: 43239; 88305; J3010

== ENCOUNTER → 2022-07-27 | Outpatient (CLI) | payer OTHER ==
[~2022-07-27] MED LIST changes: -LIDOCAINE 2% 100MG/5ML SDV (FOR ANES.) As Ordered ONE; -NS 1,000 ML IV ONE; -propofoL 200 MG/20 ML VIAL As Ordered ONE
== END ==
LOC: M PLAIMG 10:28
PROVIDERS: ATTEND Physician Assistant
DX: R91.8 Other nonspecific abnormal finding of lung field (principal)

== ENCOUNTER 2022-12-25 18:09 | Emergency (ER) | payer OTHER ==
[~2022-12-25] VITALS: Ht 172.7 cm; Wt 66.3 kg
[2022-12-25] MEDS ORDERED: SUCR1TAB56 (18:16)
[2022-12-25] MEDS ORDERED: OMEP40CA5 (18:16)
[2022-12-25 19:12] LABS: BASO % 0.7 % (0.0-1.0); EOS # 0.1 10^3/uL (0.0-0.5); HEMATOCRIT 40.2 % (36.0-47.0); HEMOGLOBIN 13.3 g/dl (12.0-15.5); LYMPH # 1.8 10^3/uL (1.5-5.0); LYMPH % 30.4 % (24.0-44.0); MEAN CORPUSCULAR HEMOGLOBIN 30.2 pg (27.0-33.0); MEAN CORPUSCULAR HGB CONC 33.1 g/dl (32.0-36.5); MEAN CORPUSCULAR VOLUME 91.4 fl (80.0-96.0); MONO # 0.4 10^3/uL (0.0-0.8); MONO % 7.3 % (2.0-8.0); NEUTROPHILS # 3.5 10^3/uL (1.5-8.5); NEUTROPHILS % 60.4 % (36.0-66.0); PLATELET COUNT, AUTOMATED 289 10^3/uL (150-450); WHITE BLOOD COUNT 5.8 10^3/uL (4.0-10.0)
[2022-12-25 19:35] LABS: LIPASE 50 U/L (12-53)
[2022-12-25 19:40] LABS: ALBUMIN 4.2 G/DL (3.2-5.2); ALKALINE PHOSPHATASE 72 U/L (46-116); ALT/SGPT 37 U/L (7.0-40); AST/SGOT 25 U/L (<34); BILIRUBIN,DIRECT 0.2 MG/DL (<0.4); BILIRUBIN,TOTAL 0.6 MG/DL (0.3-1.2); BLOOD UREA NITROGEN 9 MG/DL (9-23); CALCIUM LEVEL 9.1 MG/DL (8.5-10.1); CARBON DIOXIDE LEVEL 30 MMOL/L (20-31); CHLORIDE LEVEL 102 MMOL/L (98-107); CREATININE FOR GFR 0.68 MG/DL (0.55-1.30); GLOMERULAR FILTRATION RATE > 60.0 (>51); GLUCOSE, FASTING 87 MG/DL (60-100); POTASSIUM SERUM 3.6 MMOL/L (3.5-5.1); SODIUM LEVEL 137 MMOL/L (136-145); TOTAL PROTEIN 6.6 G/DL (5.7-8.2)
[2022-12-25] MEDS ORDERED: ISOVUE-370 76% 100ML VIAL As Ordered ONE (20:28)
[2022-12-25] MEDS ORDERED: CEFDINIR 300 MG CAP (OMNICEF) PO ONE (21:35)
[2022-12-25] MEDS ORDERED: CEFD300C41 PO (21:37)
[2022-12-25] MEDS ORDERED: MIRA3350 PO (21:37)
[2022-12-25 22:11] VITALS: BP 141/79
== END 2022-12-25 22:15 | disposition home or self-care (01) ==
LOC: M ED 18:09
DX: K59.00 Constipation, unspecified (principal); N39.0 Urinary tract infection, site not specified; Z79.899 Other long term (current) drug therapy

== ENCOUNTER → 2023-02-20 | Outpatient (CLI) | payer OTHER ==
[~2023-02-20] MED LIST changes: +CEFD300C41 PO; +MIRA3350 PO; +OMEP40CA5; +SUCR1TAB56
[2023-02-20 13:09] LABS: BASO % 0.7 % (0.0-1.0); EOS # 0.1 10^3/uL (0.0-0.5); EOS % 0.9 % (0.0-3.0); HEMATOCRIT 44.7 % (36.0-47.0); HEMOGLOBIN 14.8 g/dl (12.0-15.5); LYMPH # 1.7 10^3/uL (1.5-5.0); LYMPH % 31.2 % (24.0-44.0); MEAN CORPUSCULAR HEMOGLOBIN 30.9 pg (27.0-33.0); MEAN CORPUSCULAR HGB CONC 33.1 g/dl (32.0-36.5); MEAN CORPUSCULAR VOLUME 93.3 fl (80.0-96.0); MONO # 0.4 10^3/uL (0.0-0.8); MONO % 7.8 % (2.0-8.0); NEUTROPHILS # 3.2 10^3/uL (1.5-8.5); PLATELET COUNT, AUTOMATED 349 10^3/uL (150-450); RED BLOOD COUNT 4.79 10^6/uL (4.00-5.40); WHITE BLOOD COUNT 5.4 10^3/uL (4.0-10.0)
[2023-02-20 13:17] LABS: ALBUMIN 4.3 G/DL (3.2-5.2); ALKALINE PHOSPHATASE 88 U/L (46-116); ALT/SGPT 26 U/L (7.0-40); AST/SGOT 14 U/L (<34); BILIRUBIN,TOTAL 0.3 MG/DL (0.3-1.2); BLOOD UREA NITROGEN 11 MG/DL (9-23); CALCIUM LEVEL 9.8 MG/DL (8.5-10.1); CARBON DIOXIDE LEVEL 32 MMOL/L (20-31); CHLORIDE LEVEL 104 MMOL/L (98-107); CHOLESTEROL LEVEL 169 MG/DL (<200); CHOLESTEROL RISK RATIO 2.54 (<5); CREATININE FOR GFR 0.67 MG/DL (0.55-1.30); GLOMERULAR FILTRATION RATE > 60.0 (>51); GLUCOSE, FASTING 89 MG/DL (60-100); HDL CHOLESTEROL 66.5 MG/DL (>40); LDL CHOLESTEROL 90.1 MG/DL (<100); NON-HDL-C 102.5 MG/DL; POTASSIUM SERUM 4.3 MMOL/L (3.5-5.1); SODIUM LEVEL 139 MMOL/L (136-145); TOTAL PROTEIN 7.2 G/DL (5.7-8.2); TRIGLYCERIDES LEVEL 62 MG/DL (<150)
== END ==
LOC: M PLALAB 10:52
PROVIDERS: ATTEND Physician Assistant Medical
DX: K21.9 Gastro-esophageal reflux disease without esophagitis (principal); Z12.11 Encounter for screening for malignant neoplasm of colon; Z13.220 Encounter for screening for lipoid disorders; K59.01 Slow transit constipation

== ENCOUNTER → 2025-03-31 | Outpatient (CLI) | payer OTHER ==
[~2025-03-31] MED LIST changes: -BUPR1TAB56 PO; +BUPR200T45 PO; +CEFD1CAP9 PO; -CEFD300C41 PO
[2025-03-31 09:52] LABS: BASO # 0.1 10^3/uL (0.0-0.2); BASO % 0.8 % (0.0-1.0); EOS # 0.1 10^3/uL (0.0-0.5); EOS % 1.7 % (0.0-3.0); HEMATOCRIT 41.9 % (36.0-47.0); HEMOGLOBIN 13.9 g/dl (12.0-15.5); LYMPH # 1.7 10^3/uL (1.5-5.0); LYMPH % 26.3 % (24.0-44.0); MEAN CORPUSCULAR HEMOGLOBIN 30.7 pg (27.0-33.0); MEAN CORPUSCULAR HGB CONC 33.2 g/dl (32.0-36.5); MEAN CORPUSCULAR VOLUME 92.5 fl (80.0-96.0); MONO # 0.6 10^3/uL (0.0-0.8); MONO % 8.8 % (2.0-8.0); NEUTROPHILS # 3.9 10^3/uL (1.5-8.5); NEUTROPHILS % 61.8 % (36.0-66.0); PLATELET COUNT, AUTOMATED 289 10^3/uL (150-450); RED BLOOD COUNT 4.53 10^6/uL (4.00-5.40); WHITE BLOOD COUNT 6.4 10^3/uL (4.0-10.0)
[2025-03-31 10:12] LABS: INR 0.94; PARTIAL THROMBOPLASTIN TIME 24.5 SECONDS (24.8-34.2); PROTHROMBIN TIME 12.9 SECONDS (12.5-14.5)
[2025-03-31 10:28] LABS: ALBUMIN 3.8 G/DL (3.2-5.2); ALKALINE PHOSPHATASE 105 U/L (35-104); ALT/SGPT 48 U/L (7.0-40); AST/SGOT 22 U/L (<34); BILIRUBIN,TOTAL 0.3 MG/DL (0.3-1.2); BLOOD UREA NITROGEN 12 MG/DL (9-23); CALCIUM LEVEL 9.1 MG/DL (8.5-10.1); CARBON DIOXIDE LEVEL 30 MMOL/L (20-31); CHLORIDE LEVEL 103 MMOL/L (98-107); CREATININE FOR GFR 0.61 MG/DL (0.55-1.30); GLOMERULAR FILTRATION RATE > 90.0 (>51); GLUCOSE, FASTING 129 MG/DL (60-100); POTASSIUM SERUM 4.4 MMOL/L (3.5-5.1); SODIUM LEVEL 142 MMOL/L (136-145); TOTAL PROTEIN 6.7 G/DL (5.7-8.2)
[2025-03-31 10:30] LABS: FERRITIN 56.5 NG/ML (7.3-270.7)
== END ==
LOC: M PLALAB 08:25
PROVIDERS: ATTEND Family Medicine
DX: J45.20 Mild intermittent asthma, uncomplicated (principal)

== ENCOUNTER → 2025-05-15 | Outpatient (REF) | payer OTHER | LOC: M LAB REF 18:05 | PROVIDERS: ATTEND Student in an Organized Health Care Education/Training Program | DX: R30.0 Dysuria (principal) ==

== ENCOUNTER → 2025-09-11 | Outpatient (REF) | payer OTHER | LOC: M LAB REF 19:08 | PROVIDERS: ATTEND Student in an Organized Health Care Education/Training Program | DX: R30.0 Dysuria (principal) ==